=== PATIENT | female | born 1995 | race African-American/Black ===

== ENCOUNTER 2017-02-07 00:55 | Emergency (ER) | payer OTHER ==
[~2017-02-07] VITALS: Ht 160 cm; Wt 91.0 kg
[2017-02-07 01:00] VITALS: BP 129/72; PULSE 105; RESP 18; TEMP 98.5; O2SAT 98
[2017-02-07] MEDS ORDERED: MIREIUD I-UTERINE (01:28)
[2017-02-07] MEDS ORDERED: DICL75TA PO (02:10)
[2017-02-07] MEDS ORDERED: IBUPROFEN 800 MG TAB PO ONE (02:15)
[2017-02-07] MEDS ORDERED: ACETAMINOPHEN/HYDROcodone 325 MG/5 MG TAB PO ONE (02:15)
--- NOTE | 2017-02-07 02:28 | PD ---
HPI Chief Complaint: Injury Time Seen by Provider: 02:00 Travel History International Travel<30 days: No Contact w/Intl Traveler<30days: No Traveled to known affect area: No History of Present Illness HPI 21-year-old [id number] black male female presents complaints of right elbow pain for the last 24 hours. The patient states the day before she was in her normal state of health. She denies any history trauma. No history of prior injury. 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 She does not do any significant repetitive uses of the right hand. She does make note that when she went to bed last night her daughter slept up against her right arm. Patient has noted increasing severe pain develop in her right elbow worse with movement. She denies any numbness, tingling or weakness. No fever chills. No alleviating factors PFSH Past Medical History Medical History: Denies Significant Hx Diminished Hearing: No Tetanus Vaccination: < 5 Years ?: Not LMP: IUD Past Surgical History Surgical History: No Previous Surgery Social History Alcohol Use: No Tobacco Use: No Substance Use: No Allergies-Medications (Allergen,Severity, Reaction): Coded Allergies: No Known Allergies (Unverified , 02/07/17) Reported Meds & Prescriptions Reported Meds & Active Scripts Active Diclofenac Sodium DR (Diclofenac Sodium) 75 Mg Tabdr 75 Mg PO BID Reported Mirena (Levonorgestrel (Iud)) 20 Mcg/24 Hour (5 Years) Iud 52 Mg I-UTERINE ONCE Review of Systems Except as stated in HPI: all other systems reviewed are Neg Physical Exam Narrative GENERAL: This is a well-nourished, well-developed patient, in no apparent distress. SKIN: No rashes, ecchymoses or lesions. Warm and dry. HEAD: Atraumatic. Normocephalic. EYES: PERRL, EOMI, no discharge or injection. No scleral icterus. EARS: Clear NOSE: Nasal turbinates appear normal. THROAT: Mucosa pink and moist. Airway patent. NECK: Trachea midline. supple, moves head freely. LUNGS: Clear to auscultation. CV: Regular in rhythm. ABDOMEN: Soft nontender. EXT: No clubbing cyanosis. Examination of the right arm reveals swelling in the elbow with tenderness. There is no erythema or warmth. Patient has global decreased range of motion. She holds her arm at a 90. Positive pain with supination, pronation, extension and flexion. This is very limited due to pain. No pain in the clavicle, shoulder, wrist or hand. She has intact median/ ulnar/renal nerves. She has good radial pulses. She is able to move her fingers freely. The left upper extremity as well as lower extremities are without localizing bony tenderness or deformity. Neurovascular intact. Data Data Last Documented VS Vital Signs Date Time Temp Pulse Resp B/P (MAP) Pulse Ox O2 Delivery O2 Flow Rate FiO2 02/07/17 01:00 98.5 105 18 129/72 (91) 98 Orders Orders Splint Or Brace Apply/Monitor (02/07/17 02:09) Acetamin-Hydrocod 325-5 Mg (Addison 5-325 (02/07/17 02:15) Ibuprofen (Motrin) (02/07/17 02:15) Elbow, Limited (Ap&Lat) (02/07/17 02:16) MDM Medical Decision Making Medical Screen Exam Complete: Yes Emergency Medical Condition: Yes Medical Record Reviewed: Yes Interpretation(s) Right elbow: No obvious fracture. No joint effusion. Differential Diagnosis MDM: High Differential diagnoses: Fracture, sprain, strain, dislocation, contusion, neurovascular injury Narrative Course Patient's given Lortab 5 mg and Motrin 800 mg by mouth area and sling. X-ray of the elbow is unremarkable. This is right elbow pain, bursitis Diagnosis Primary Impression: Right elbow pain Additional Impression: Bursitis of elbow Qualified Codes: M70.31 - Other bursitis of elbow, right elbow Patient Instructions: General Instructions Departure Forms: Tests/Procedures, Work Release Special Instructions: No use the right arm at work for the next 5 days. Additional Instructions: Rest. Sling. Heating pad. Diclofenac. Follow-up with an orthopedic or primary care doctor in the next 3-7 days. Return to the ER if any problems. Med/Other Pt SpecificInfo: Prescription(s) given Scripts Diclofenac Sodium DR (Diclofenac Sodium DR) 75 Mg Tabdr 75 MG PO BID, #20 TAB 0 Refills Prov: Stephon Rey MD 02/07/17 Disposition: 01 DISCHARGE HOME Condition: Stable Rey Davila Feb 07, 2017 02:28
--- NOTE | 2017-02-07 02:43 | RADRPT ---
EXAM DATE/TIME: 02/07/2017 02:06 [facility] COMPARISON: No previous studies available for comparison. INDICATIONS : Right elbow pain. MEDICAL HISTORY : None. SURGICAL HISTORY : None. ENCOUNTER: Initial ACUITY: 1 day PAIN SCORE: 10/10 LOCATION: Right upper extremity elbow FINDINGS: Two view examination of the right elbow demonstrates no soft tissue swelling, joint effusion, fractur e or dislocation. Bony mineralization is normal. CONCLUSION: Unremarkable limited examination of the right elbow. Deejay Mathews MD on February 07, 2017 at 2:41 Board Certified Radiologist. This report was verified electronically.
== END 2017-02-07 03:02 | disposition home or self-care (01) ==
LOC: NEPD 00:55
DX: M70.31 Other bursitis of elbow, right elbow (principal); M25.521 Pain in right elbow
CPT/HCPCS: 73070; 99283